=== PATIENT | female | born 1995 | race Caucasian/White ===

== ENCOUNTER 2018-04-15 12:20 | Emergency (ER) | payer OTHER ==
[2018-04-15 12:27] VITALS: BP 132/83; PULSE 80; TEMP 98.5; BMI 22.6
--- NOTE | 2018-04-15 12:37 | PDOC ---
History of Present Illness - General Chief Complaint: Pain, Acute Stated Complaint: LEFT ANKLE PAIN Time Seen by Provider: 04/15/18 12:23 History Source: Patient Exam Limitations: No Limitations - History of Present Illness Initial Comments: 04/15/18 12:35 21Status post left ankle injury yesterday. Patient states she was walking down the stairs subsequently had an inversion injury today is complaining of left lateral ankle pain denies any associated ecchymosis or swelling pain is worse with walking did take Motrin at 9 AM this morning with some relief to her pain patient currently works as a ems instructor denies any hip or knee pain no other associated injuries 04/15/18 12:40 Past History - Past Medical History Allergies/Adverse Reactions: Allergies Allergy/AdvReac Type Severity Reaction Status Date / Time No Known Allergies Allergy Verified 04/15/18 12:21 Home Medications: Ambulatory Orders Norethindrone [Ortho Micronor] 0.35 mg PO HS 08/11/16 Ibuprofen [Motrin -] 600 mg PO TID PRN #90 tablet MDD 3 04/15/18 COPD: No DVT: No Other medical history: DENIES - Suicide/Smoking/Psychosocial Hx Smoking History: Never smoked Hx Alcohol Use: No Drug/Substance Use Hx: No Substance Use Type: None Review of Systems - Review of Systems Constitutional: No: Chills, Diaphoresis, Fever Respiratory: No: Orthopnea, Productive cough Musculoskeletal: Yes: Joint Pain. No: Back Pain, Gout Integumentary: No: Bruising, Change in Color Neurological: No: Headache Endocrine: No: Excessive Sweating Hematologic/Lymphatic: No: Anemia, Blood Clots All Other Systems: Reviewed and Negative *Physical Exam - Vital Signs Last Vital Signs Temp Pulse Resp BP Pulse Ox 98.5 F 80 16 132/83 100 04/15/18 12:21 04/15/18 12:21 04/15/18 12:21 04/15/18 12:21 04/15/18 12:21 - Physical Exam General Appearance: Yes: Appropriately Dressed Musculoskeletal: positive: Other (left ankle lateraltalofibular ligament tend) Extremity: positive: Normal Capillary Refill, Normal Range of Motion, Tender ( tender over the medial or posterior mall tenderness) Integumentary: positive: Normal Color, Dry, Warm, Other. negative: Ecchymosis, Bruising ED Treatment Course - RADIOLOGY Radiology Studies Ordered: Category Date Time Status ANKLE & FOOT-LEFT* [RAD] Stat Radiology 04/15/18 12:32 Ordered Medical Decision Making - Medical Decision Making 04/15/18 12:42 patient with l likely sprain differential fx x-ray ice and elevate as needed ortho for follow *DC/Admit/Observation/Transfer Diagnosis at time of Disposition: Ankle sprain - Discharge Dispostion Condition at time of disposition: Improved - Prescriptions Prescriptions: Ibuprofen [Motrin -] 600 mg PO TID PRN #90 tablet MDD 3 PRN Reason: Pain - Referrals Referrals: Philip Sutherland MD [Staff Physician] - - Patient Instructions Printed Discharge Instructions: Ankle Sprain Additional Instructions: you can ice and elevate every 6 hrs for 24 hours. you can bear weight as tolerated. eveline wrap or velcrox ankle splint for comfort. follow up with orthopedics for pain beyond one week. call dr. Sutherland to schedule. your xrays were negative for any broken bones today. - Post Discharge Activity
[2018-04-15] MEDS ORDERED: ACETAMINOPHEN 325 MG TABLET (FP) PO ONE (12:46)
[2018-04-15] MEDS ORDERED: ACETAMINOPHEN 325 MG TABLET (FP) ONE (12:51)
== END 2018-04-15 13:52 | disposition home or self-care (01) ==
LOC: FER 12:20
DX: S93.402A Sprain of unspecified ligament of left ankle, initial encounter (principal); X58.XXXA Exposure to other specified factors, initial encounter; Y93.89 Activity, other specified; Y92.89 Other specified places as the place of occurrence of the external cause
CPT/HCPCS: 73610-TC-LT-FY; 73630-TC-LT; 99281-25